=== PATIENT | female | born 1985 | race Caucasian/White ===

== ENCOUNTER 2016-12-16 15:59 | Outpatient (CLI) | payer OTHER ==
[~2016-12-16] VITALS: Ht 167.6 cm; Wt 83.7 kg
[2016-12-16 16:20] VITALS: BP 107/61; PULSE 55; Ht 167.6 cm; Wt 83.7 kg
[2016-12-16] MEDS ORDERED: PRENAT PO (16:21)
[2016-12-16] MEDS ORDERED: TERBUTALINE 1 MG/ML INJ SC ONE ×2 (17:00→20:30)
[2016-12-16] MEDS ORDERED: LACTATED RINGER'S 1,000 ML IV SCH (17:00)
--- NOTE | 2016-12-16 17:14 | RADRPT ---
PROCEDURE: Limited obstetric ultrasound CLINICAL INDICATION: Pain , PTL TECHNIQUE: Multiple transverse and longitudinal grayscale images of the pelvis were obtained peguero sabdominally and transvaginally.. COMPARISON: same day FINDINGS: The cervix is closed with a length of 4.8 cm. There is a single viable intrauterine gestation. Cardiac activity is present with 120 beats per min dio. There is a vertex presentation. The placenta is anterior. There is no evidence for an abruption or placenta previa. RPTAT: AA IMPRESSION: Cervix length measures 4.8 cm. .Wilman Coleman MD, Date Time Electronically viewed and signed by .Wilman Coleman MD, on 12/16/2016 17:13 .S/
[2016-12-16 17:52] LABS: ABNORMAL IP MESSAGE 1; BASOPHILS % 0.3 % (0.0-2.0); EOSINOPHILS % 0.4 % (0.0-7.0); HEMATOCRIT 37.9 % (37.0-47.0); HEMOGLOBIN 12.8 g/dl (12.0-16.0); LYMPHOCYTES # 1.5 10^3/ul (0.8-2.9); LYMPHOCYTES % 19.4 % (15.0-51.0); MEAN CORPUSCULAR HEMOGLOBIN 28.4 pg (29.0-33.0); MEAN CORPUSCULAR HGB CONC 33.8 g/dl (32.0-37.0); MEAN CORPUSCULAR VOLUME 84.2 fl (82.0-101.0); MEAN PLATELET VOLUME 13.4 fl (7.4-10.4); MONOCYTE # 0.6 10^3/ul (0.3-0.9); NEUTROPHIL # 5.6 10^3/ul (1.6-7.5); NEUTROPHILS % 71.4 % (39.0-77.0); PLATELET COUNT 128 10^3/UL (140-415); RED CELL DISTRIBUTION WIDTH 12.6 % (11.5-14.5); WHITE BLOOD COUNT 7.8 10^3/ul (4.8-10.8)
[2016-12-16 17:55] LABS: POSITIVE DIFF @See below
[2016-12-16 18:49] LABS: ADD UMIC NO; UR ASCORBIC ACID NEGATIVE (NEGATIVE); UR BILIRUBIN (Dip) NEGATIVE (NEGATIVE); UR BLOOD (Dip) NEGATIVE (NEGATIVE); UR CLARITY CLEAR (CLEAR); UR COLOR YELLOW (YELLOW); UR GLUCOSE (Dip) NEGATIVE (NEGATIVE); UR KETONES (Dip) NEGATIVE (NEGATIVE); UR LEUKOCYTE ESTERASE (Dip) NEGATIVE Leu/ul (NEGATIVE); UR NITRITE (Dip) NEGATIVE (NEGATIVE); UR SPECIFIC GRAVITY (Dip) 1.017 (1.003-1.030); UR TOTAL PROTEIN (Dip) NEGATIVE (NEGATIVE); UR UROBILINOGEN (Dip) NEGATIVE (NEGATIVE)
--- NOTE | 2016-12-16 19:53 | PN ---
Triage Information Date/Time December 16, 2016 Reason for visit: Uterine contractions Weeks of Gestation 33 week /Para 2 para 0 Diabetes: none Hypertention: none Additional information 31-year-old female sent in evaluation of uterine contractions observe in the clinic Objective Vital Signs Date Time Temp Pulse Resp B/P Pulse Ox O2 Delivery O2 Flow Rate FiO2 12/16/16 16:20 97.9 55 107/61 Heart Rate: 140's Heart Rate Comments Reactive Contractions: < 5 Minutes Apart Exam Cervix is long and closed Results/Medications Result Diagram: 12/16/16 1730 Results 24 hrs Laboratory Tests Test 12/16/16 17:30 12/16/16 18:15 White Blood Count 7.8 Red Blood Count 4.50 Hemoglobin 12.8 Hematocrit 37.9 Mean Corpuscular Volume 84.2 Mean Corpuscular Hemoglobin 28.4 L Mean Corpuscular Hemoglobin Concent 33.8 Red Cell Distribution Width 12.6 Platelet Count 128 L Mean Platelet Volume 13.4 H Neutrophils % 71.4 Lymphocytes % 19.4 Monocytes % 8.0 Eosinophils % 0.4 Basophils % 0.3 Nucleated Red Blood Cells % 0.0 Neutrophils # 5.6 Lymphocytes # 1.5 Monocytes # 0.6 Eosinophils # 0.0 Basophils # 0.0 Nucleated Red Blood Cells # 0.0 Urine Color YELLOW Urine Clarity CLEAR Urine pH 6.0 Urine Specific [place] 1.017 Urine Ketones NEGATIVE Urine Nitrite NEGATIVE Urine Bilirubin NEGATIVE Urine Urobilinogen NEGATIVE Urine Leukocyte Esterase NEGATIVE Urine Hemoglobin NEGATIVE Urine Glucose NEGATIVE Urine Total Protein NEGATIVE Medications Current Medications Lactated Ringer's (Lr) 1,000 ml @ 125 mls/hr Q8H IV Last administered on t 17:24; Admin Dose 125 MLS/HR; Start 12/16/16 at 17:00 Imaging Results The cervix is closed with a length of 4.8 cm. There is a single viable intrauterine gestation. Cardiac activity is present with 120 beats per minute. There is a vertex presentation. The placenta is anterior. There is no evidence for an abruption or placenta previa. Disposition: Discharge Assessment/Plan After receiving IV hydration and subcutaneous terbutaline uterine contractions subsided Patient became totally pain-free Is going to follow patient as outpatient Recommended patient to have bed on pelvic rest until delivery Also recommended patient in case her contractions return she should return to OB triage HINA WOMACK MD Dec 16, 2016 19:53
--- NOTE | 2016-12-16 19:55 | PD.PPDC ---
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
[2016-12-16] MEDS ORDERED: BETAMET NA PHOS/AC(6 MG/ML) 5ML INJ IM ONE (20:30)
--- NOTE | 2016-12-16 21:41 | TRIAGE ---
OB Triage Datetime Report Generated by CPN: 12/16/2016 21:41 Datetime: 12/16/2016 21:04 Pain Assessment Comments: PT. DENIES FEELING UC'S, PT. REQUESTING TO BE D/C'D HOME Datetime: 12/16/2016 20:42 Pain Assessment Comments: PT. STILL DENYING FEELING UC AND PAIN Datetime: 12/16/2016 20:30 Labor Evaluation Frequency: OCC Monitor Mode: External Pattern: Normal: <= 5 Contractions in 10 Minutes Heart Rate FHR Baseline Rate: 135 Monitor Mode: External US FHR Baseline Changes: No Baseline Change Variability: Moderate 6-25 bpm Accelerations: 15X15 Datetime: 12/16/2016 19:30 Labor Evaluation Frequency: 1.5-4 Monitor Mode: External Duration (sec)2399: 40-50 Pattern: Normal: <= 5 Contractions in 10 Minutes Heart Rate FHR Baseline Rate: 135 Monitor Mode: External US FHR Baseline Changes: No Baseline Change Variability: Moderate 6-25 bpm Accelerations: 15X15 Datetime: 12/16/2016 19:27 Pain Assessment Pain Scale: 0 Pain Goal: 0 Pain Assessment Comments: PT. STATES SHE HAS 'NO PAIN', PT. ALSO STATES THAT SHE WAS NOT FEELING A [place] PAIN WHEN SHE FIRST CAME IN Datetime: 12/16/2016 19:20 Monitor Mode: External US Datetime: 12/16/2016 18:19 Vaginal Exam Dilatation (cms): 0.0 Effacement (%): 0 Station: -3 Exam By: S ALLYSON Vaginal Bleeding: None Cervix, Consistency: Soft Cervix, Position: Posterior Presentation 'A': Cephalic Datetime: 12/16/2016 17:32 Labor Evaluation Frequency: 2-3 Monitor Mode: External Duration (sec)2399: 50-60 Quality: Mild Resting Tone [place]: Relaxed Heart Rate FHR Baseline Rate: 125 Monitor Mode: External US Variability: Moderate 6-25 bpm Decelerations: None Category: Category I Pain Assessment Pain Scale: 0 Pain Presence: None/Denies Pain Type: N/A Pain Goal: 3 Pain Relief Measures: Comfort Measures Datetime: 12/16/2016 16:33 Stage of : OB Triage Datetime: 12/16/2016 16:17 Stage of : OB Triage Assessment Type: Triage Maternal Assessment Level of Consciousness: Fully Conscious DTR's/Clonus: DTRs 2+; No Clonus Headache: Denies Blurred Vision: No Respiratory Effort: Unlabored; Regular Rhythm; Equal Expansion Breath Sounds, Left: Clear and Equal Breath Sounds, Right: Clear and Equal Nausea/Vomiting: Denies RUQ Epigastric Pain: Denies Facial Edema: None Temperature Route: Axillary Fall Risk Assessment History of Falling: (0) No Secondary Diagnosis: (0) No Ambulatory Aid: (0) Bedrest/Nurse Assist IV Therapy: (0) No Gait: (0) Normal/Bedrest/Immobile Mental Status: (0) Oriented to Own Ability Fall Score: 0 Fall Risk Score Definition: No Risk: No action required Labor Evaluation Frequency: 2-3 Monitor Mode: External Duration (sec)2399: 40-50 Quality: Mild Pattern: Normal: <= 5 Contractions in 10 Minutes Resting Tone [place]: Relaxed Heart Rate FHR Baseline Rate: 125 Monitor Mode: External US Variability: Moderate 6-25 bpm Accelerations: 10X10 Decelerations: None Category: Category I Pain Assessment Pain Scale: 0 Pain Presence: None/Denies Pain Type: N/A Pain Location: Abdomen Pain Goal: 3 Pain Relief Measures: Comfort Measures Datetime: 12/16/2016 16:16 EGA: 33.6 Datetime: 12/16/2016 16:15 Time of Arrival: 12/16/2016 15:45 Arrived By: Ambulatory Arrived From: [facility] Chief Complaint: SENT FROM OFFICE TO R/O PTL, DENIES UC'S, BLEEDING OR LEAKING Movement: Present Contractions: Denies/Absent Rupture of Membranes: Denies Vaginal Bleeding: None Vaginal Discharge: Denies Recent Sexual Intercouse: Denies Abdominal Trauma: Not Applicable Patient Complaints: None Time Provider Notified: 12/16/2016 16:33 Provider Notified: DONNA Initial Plan: MONITOR, IV HYDRATION, SUB Q TERB, CL, U/A, CBC, VE
[2016-12-17] MEDS ORDERED: PRO20 PO (20:08)
== END 2016-12-16 21:35 | disposition home or self-care (01) ==
LOC: OBT 15:59 → L-D 16:01 → OBT 21:35
PROVIDERS: ATTEND Obstetrics & Gynecology
DX: O62.9 Abnormality of forces of labor, unspecified (principal); Z3A.33 33 weeks gestation of pregnancy
CPT/HCPCS: 36415; 76817; 81003; 85025; 96360; 96361; 96372; J0702; J3105; J7120; Z7500; G0463

== ENCOUNTER 2016-12-17 19:51 | Outpatient (CLI) | payer OTHER ==
[~2016-12-17 19:51] MED LIST: PRENAT PO
[2016-12-17] MEDS ORDERED: BETAMET NA PHOS/AC(6 MG/ML) 5ML INJ IM ONE (20:00)
[2016-12-17] MEDS ORDERED: PRO20 PO (20:08)
--- NOTE | 2016-12-18 01:18 | PN ---
Triage Information Date/Time December 17, 2016 31-year-old with IUP at 34 weeks and contractions presented and was sent by primary OB to triage to receive the second dose of steroid. Patient currently taking nifedipine for contraction. Has been seen 24 hours ago in triage and received 1 dose of betamethasone. She was sent and discharged home with nifedipine. She currently denies any leaking of fluid, vaginal bleeding decreased movement or any other complaint. NST: Category 1 Reason for visit: Receiving steroid shot Weeks of Gestation 34 weeks /Para Diabetes: none Hypertention: none Additional information contraction Objective Heart Rate: 120's Contractions: >10 Minutes Apart Exam General appearance: Alert and oriented 4. Patient does not appear to be in any acute distress. NST: Category 1 Contractions seen in the monitor variable interval . Irregular. Patient does not feel them Disposition: Discharge Assessment/Plan IUP is a 34 weeks contraction Status post 1 dose of steroid 24 hours ago, receive second dose today No evidence of labor testing reassuring Patient will be discharged home with a follow-up with primary OB within 24-48 hours with strict labor precaution for the francis count. Patient verbalized understanding RIO ELLIOTT MD Dec 18, 2016 01:18
== END 2016-12-17 22:00 | disposition home or self-care (01) ==
LOC: OBT 19:51 → L-D 19:52 → OBT 22:00
PROVIDERS: ATTEND Obstetrics & Gynecology
DX: O62.9 Abnormality of forces of labor, unspecified (principal); Z3A.34 34 weeks gestation of pregnancy
CPT/HCPCS: 96372; Z7500; G0463

== ENCOUNTER 2016-12-25 16:50 | Outpatient (CLI) | payer OTHER ==
[~2016-12-25] VITALS: Ht 165.1 cm; Wt 83.8 kg
[~2016-12-25 16:50] MED LIST changes: +PRO20 PO
[2016-12-25 17:42] VITALS: Ht 165.1 cm; Wt 83.8 kg
--- NOTE | 2016-12-25 17:44 | RADRPT ---
PROCEDURE: US OB biophysical profile. CLINICAL INDICATION: decreased movements TECHNIQUE: Multiple sonographic images of the pelvis were obtained. The images were reviewed on a PACS workstation. COMPARISON: 12/16/16 FINDINGS: There is a single viable intrauterine gestation. Cardiac activity is present with 135 beats per min dio. There is a vertex presentation. The placenta is anterior. There is no evidence of placental abruption. There is a normal amount of amniotic fluid with an TOAN = 19.1 cm. Biophysical profile: movement 2/2 tone 2/2. breathing 2/2 TOAN 2/2 Total 12/16 RPTAT: AA . IMPRESSION: Normal biophysical profile. . .Wilman Coleman MD, MD Date Time Electronically viewed and signed by .Wilman Coleman MD, MD on 12/25/2016 17:44 .S/
--- NOTE | 2016-12-25 18:40 | PN ---
Triage Information Date/Time 12/25/2016 Reason for visit: DFM Weeks of Gestation 34.2 /Para Diabetes: none Hypertention: none Additional information here for decreased movement Objective Heart Rate: 120's Heart Rate Comments reactive Contractions: None Exam N/A Results/Medications Imaging Results Biophysical profile: movement 2/2 tone 2/2. breathing 2/2 TOAN 2/2 Total 12/16 RPTAT: AA . IMPRESSION: Normal biophysical profile. Disposition: Discharge Assessment/Plan will follow as out patient HINA WOMACK MD Dec 25, 2016 18:40
== END 2016-12-25 19:24 | disposition home or self-care (01) ==
LOC: OBT 16:50 → L-D 16:51 → OBT 19:24
PROVIDERS: ATTEND Obstetrics & Gynecology
DX: O36.8130 Decreased fetal movements, third trimester, not applicable or unspecified (principal); Z3A.34 34 weeks gestation of pregnancy
CPT/HCPCS: 76818; Z7500; G0463

== ENCOUNTER 2017-01-20 12:30 | Outpatient (CLI) | payer OTHER ==
[~2017-01-20] VITALS: Ht 165.1 cm; Wt 84.7 kg
[2017-01-20 12:59] VITALS: Ht 165.1 cm; Wt 84.7 kg
[2017-01-20 13:00] VITALS: BP 108/67; PULSE 56; RESP 20
[2017-01-20] MEDS ORDERED: FER325 PO (14:41)
[2017-01-20] MEDS ORDERED: CALC600T5 PO (14:41)
--- NOTE | 2017-01-20 16:10 | PN ---
Triage Information Date/Time January 20, 2017 Reason for visit: 17 by perinatologist for follow-up of nonreactive heart tracing in Weeks of Gestation 38 weeks /Para 2 para 1 Diabetes: gestational Diabetes management: diet controlled Hypertention: none Additional information Sent in by perinatologist for extended monitoring because of a nonreactive heart tones in antepartum unit heart tones appears to be reactive Contraction stress test appears to be negative Had a small variable deceleration earlier Objective Vital Signs Date Time Temp Pulse Resp B/P Pulse Ox O2 Delivery O2 Flow Rate FiO2 01/20/17 13:00 98.1 56 20 108/67 96 Heart Rate: 120's Heart Rate Comments Reactive Contractions: 6-10 Minutes Apart Exam Not applicable Results/Medications Imaging Results Had biophysical profile of 8 out of 8 Disposition: Discharge Assessment/Plan We will discharge home Kick count instructions given Recommended to refer her back to hospital should have decreased movement Continue antepartum monitoring for diabetes Revisiting clinic in 2 days Repeat antepartum testing in 3 days HINA WOMACK MD Jan 20, 2017 16:10
--- NOTE | 2017-01-20 16:38 | TRIAGE ---
OB Triage Datetime Report Generated by CPN: 01/20/2017 16:38 Datetime: 01/20/2017 15:00 Stage of : OB Triage Maternal Assessment Level of Consciousness: Fully Conscious Nausea/Vomiting: Denies RUQ Epigastric Pain: Denies Labor Evaluation Frequency: 10 Monitor Mode: External Duration (sec)2399: 40-60 Quality: Mild Interventions: Side to Side Heart Rate FHR Baseline Rate: 120 Monitor Mode: External US Variability: Minimal - Undetectable to <=5 bpm Accelerations: 15X15 Decelerations: Variable (Annotations: x1 [id number] x 90 sec) Category: Category II Pain Assessment Pain Scale: 1 Pain Presence: Intermittent Pain Type: Contraction Pain Location: Abdomen Pain Goal: 3 Datetime: 01/20/2017 14:00 Stage of : OB Triage Maternal Assessment Level of Consciousness: Fully Conscious Headache: Localized (Annotations: top of head 2/10) Nausea/Vomiting: Denies RUQ Epigastric Pain: Denies Labor Evaluation Frequency: 5-7 Monitor Mode: External Duration (sec)2399: 40-60 Quality: Mild Heart Rate FHR Baseline Rate: 120 Monitor Mode: External US Variability: Minimal - Undetectable to <=5 bpm Accelerations: 15X15 Decelerations: None Category: Category I Pain Assessment Pain Scale: 1 Datetime: 01/20/2017 13:08 Stage of : OB Triage Maternal Assessment Level of Consciousness: Fully Conscious DTR's/Clonus: DTRs 2+; No Clonus Headache: Denies Blurred Vision: No Respiratory Effort: Unlabored; Regular Rhythm; Equal Expansion Breath Sounds, Left: Clear and Equal Breath Sounds, Right: Clear and Equal Nausea/Vomiting: Denies RUQ Epigastric Pain: Denies Lower Extremities Edema: None Upper Extremities Edema: None Facial Edema: None Fall Risk Assessment History of Falling: (0) No Secondary Diagnosis: (0) No Ambulatory Aid: (0) Bedrest/Nurse Assist IV Therapy: (0) No Gait: (0) Normal/Bedrest/Immobile Mental Status: (0) Oriented to Own Ability Fall Score: 0 Fall Risk Score Definition: No Risk: No action required Labor Evaluation Frequency: occ Monitor Mode: External Quality: Mild Heart Rate FHR Baseline Rate: 120 Monitor Mode: External US Variability: Moderate 6-25 bpm Accelerations: 15X15 Decelerations: None Category: Category I Datetime: 01/14/2017 13:14 Time of Arrival: 01/20/2017 12:19 EGA: 38.0 Arrived By: Ambulatory Arrived From: Other Unit in Hospital Chief Complaint: headaches on/off; decreased variability Movement: Present Contractions: Irregular Rupture of Membranes: Denies Vaginal Bleeding: None Vaginal Discharge: Denies Recent Sexual Intercouse: Denies Abdominal Trauma: Not Applicable Patient Complaints: Contractions Time Provider Notified: 01/20/2017 13:35 Provider Notified: Bj Initial Plan: nst valeria was done 19.8 cm in perinatology Datetime: 12/25/2016 18:47 Monitor Mode: External Pattern: Normal: <= 5 Contractions in 10 Minutes Resting Tone [place]: Relaxed Heart Rate FHR Baseline Rate: 140 Monitor Mode: External US FHR Baseline Changes: No Baseline Change Variability: Moderate 6-25 bpm Accelerations: 15X15 Decelerations: None Category: Category I Datetime: 12/25/2016 18:34 Stage of : OB Triage Datetime: 12/25/2016 17:45 EGA: 35.1 Datetime: 12/25/2016 17:00 Fall Score: 0 Fall Risk Score Definition: No Risk: No action required Datetime: 12/17/2016 19:55 Fall Score: 0 Fall Risk Score Definition: No Risk: No action required Datetime: 12/16/2016 16:17 Fall Score: 0 Fall Risk Score Definition: No Risk: No action required Datetime: 12/16/2016 16:16 EGA: 34.0
== END 2017-01-20 16:33 | disposition home or self-care (01) ==
LOC: L-D 12:30 → OBT 12:30
PROVIDERS: ATTEND Obstetrics & Gynecology
DX: O24.419 Gestational diabetes mellitus in pregnancy, unspecified control (principal); Z3A.38 38 weeks gestation of pregnancy
CPT/HCPCS: G0463

== ENCOUNTER 2017-01-31 01:29 | Outpatient (CLI) | payer OTHER ==
[~2017-01-31] VITALS: Ht 165.1 cm; Wt 84.5 kg
[~2017-01-31 01:29] MED LIST changes: +CALC600T5 PO; +FER325 PO; -PRO20 PO
[2017-01-31 01:39] VITALS: BP 112/71; PULSE 57; RESP 18
--- NOTE | 2017-01-31 02:18 | RADRPT ---
PROCEDURE: US OB biophysical profile. CLINICAL INDICATION: decreased movements TECHNIQUE: Multiple sonographic images of the pelvis were obtained. The images were reviewed on a PACS workstation. COMPARISON: No pertinent prior examinations were submitted for comparison. FINDINGS: There is a single viable intrauterine gestation. Cardiac activity is present with 146 beats per min [place]. There is a vertex presentation. The placenta is anterior. There is a increased amount of amniotic fluid with an TOAN = 26 cm. Biophysical profile: movement 2/2 tone 2/2. breathing 2/2 TOAN 2/2 Total 12/16 IMPRESSION: Normal biophysical profile. Polyhydramnios. RPTAT: HIKT . .Harjinder Toledo MD, MD Date Time Electronically viewed and signed by .Harjinder Toledo MD, on 01/31/2017 02:18 .T/
[2017-01-31] MEDS ORDERED: ACETAMINOPHEN 500 MG TAB PO ONE (04:08)
[2017-01-31 04:58] LABS: ADD UMIC YES; UR ASCORBIC ACID 20 mg/dL (NEGATIVE); UR BILIRUBIN (Dip) NEGATIVE (NEGATIVE); UR BLOOD (Dip) NEGATIVE (NEGATIVE); UR CLARITY SLIGHTLY CLOUDY (CLEAR); UR COLOR YELLOW (YELLOW); UR GLUCOSE (Dip) NEGATIVE (NEGATIVE); UR KETONES (Dip) NEGATIVE (NEGATIVE); UR LEUKOCYTE ESTERASE (Dip) NEGATIVE Leu/ul (NEGATIVE); UR MUCUS FEW /HPF (NONE SEEN); UR NITRITE (Dip) NEGATIVE (NEGATIVE); UR RBC 1 /HPF (0-5); UR SPECIFIC GRAVITY (Dip) 1.027 (1.003-1.030); UR SQUAMOUS EPITHELIAL CELL FEW /HPF (FEW); UR TOTAL PROTEIN (Dip) 1+ mg/dl (NEGATIVE); UR UROBILINOGEN (Dip) NEGATIVE (NEGATIVE)
--- NOTE | 2017-01-31 07:02 | PN ---
Triage Information Date/Time Jan 31, 2017 Reason for visit: Abd/pelvic pain Weeks of Gestation 39w 4d /Para 2/0 Diabetes: none Hypertention: none Additional information Pt came in as she fell on the side of her belly when she was trying to reach something in a high cupboard. No leaking, contractions, bleeding, LUU, visual changes or epigastric pain. Objective Vital Signs Date Time Temp Pulse Resp B/P Pulse Ox O2 Delivery O2 Flow Rate FiO2 01/31/17 01:39 98.0 57 18 112/71 Room Air Heart Rate: 120's Heart Rate Comments With accels to 150's. No decels. Contractions: 6-10 Minutes Apart Exam Closed/thick/high. Results/Medications Results 24 hrs Laboratory Tests Test 01/31/17 04:00 Urine Color YELLOW Urine Clarity SLIGHTLY CLOUDY A Urine pH 6.0 Urine Specific [place] 1.027 Urine Ketones NEGATIVE Urine Nitrite NEGATIVE Urine Bilirubin NEGATIVE Urine Urobilinogen NEGATIVE Urine Leukocyte Esterase NEGATIVE Urine Microscopic RBC 1 Urine Microscopic WBC 2 Urine Squamous Epithelial Cells FEW Urine Mucus FEW A Urine Hemoglobin NEGATIVE Urine Glucose NEGATIVE Urine Total Protein 1+ H Imaging Results BPP 8/8. VTX. TOAN 26. Disposition: Discharge Assessment/Plan A: IUP at 39w 4d. S/P fall on side of belly. Not in labor. P: D/C home. Keep appt with Dr Lorenzo on 02/05. kick counts and labor precautions reviewed with pt. DOLORES RENDON MD Jan 31, 2017 07:02
== END 2017-01-31 07:40 | disposition home or self-care (01) ==
LOC: L-D 01:29 → OBT 01:29
PROVIDERS: ATTEND Obstetrics & Gynecology
DX: O9A.213 Injury, poisoning and certain other consequences of external causes complicating pregnancy, third trimester (principal); Z3A.39 39 weeks gestation of pregnancy; R10.2 Pelvic and perineal pain; W19.XXXA Unspecified fall, initial encounter
CPT/HCPCS: 76818; 81001; Z7500; Z7610; G0463

== ENCOUNTER 2017-02-03 11:30 | Inpatient (IN) | payer OTHER ==
[~2017-02-03] VITALS: Ht 165.1 cm; Wt 83.6 kg
[2017-02-03 12:44] VITALS: Ht 165.1 cm; Wt 83.6 kg
[2017-02-03] MEDS: LACTATED RINGER'S 1,000 ML IV SCH ×2 (12:50→14:21)
[2017-02-03 12:57] LABS: ABNORMAL IP MESSAGE 1; BASOPHILS % 0.4 % (0.0-2.0); EOSINOPHILS % 0.4 % (0.0-7.0); HEMATOCRIT 37.6 % (37.0-47.0); HEMOGLOBIN 12.9 g/dl (12.0-16.0); LYMPHOCYTES # 2.2 10^3/ul (0.8-2.9); LYMPHOCYTES % 28.6 % (15.0-51.0); MEAN CORPUSCULAR HEMOGLOBIN 29.3 pg (29.0-33.0); MEAN CORPUSCULAR HGB CONC 34.3 g/dl (32.0-37.0); MEAN CORPUSCULAR VOLUME 85.3 fl (82.0-101.0); MEAN PLATELET VOLUME 13.6 fl (7.4-10.4); MONOCYTE # 0.6 10^3/ul (0.3-0.9); MONOCYTES % 7.9 % (0.0-11.0); NEUTROPHIL # 4.9 10^3/ul (1.6-7.5); NEUTROPHILS % 62.1 % (39.0-77.0); PLATELET COUNT 103 10^3/UL (140-415); RED BLOOD COUNT 4.41 10^6/ul (4.20-5.40); RED CELL DISTRIBUTION WIDTH 13.7 % (11.5-14.5); WHITE BLOOD COUNT 7.8 10^3/ul (4.8-10.8)
[2017-02-03] MEDS ORDERED: OXYTOCIN 30 UNITS/LR 500 ML IV PRN ×2 (13:00→22:00)
[2017-02-03] MEDS ORDERED: CARBOPROST 250 MCG INJ IM PRN ×2 (13:00→22:00)
[2017-02-03] MEDS ORDERED: OXYTOCIN 30 UNITS/LR 500 ML IV SCH (13:00)
[2017-02-03] MEDS ORDERED: METHYLERGONOVINE 0.2 MG INJ IM PRN ×2 (13:00→22:00)
[2017-02-03] MEDS ORDERED: MISOPROSTOL 200 MCG TAB PR PRN ×2 (13:00→22:00)
[2017-02-03] MEDS ORDERED: CEFAZOLIN 2 GM/50 ML (PMX) 50 ML IV SCH (13:00)
[2017-02-03 13:04] LABS: POSITIVE DIFF @See below
[2017-02-03 13:12] LABS: INR 0.86; PROTIME 11.7 Sec (12.2-14.2); PT RATIO 0.9
[2017-02-03 13:13] LABS: PARTIAL THROMBOPLASTIN TIME 29.7 Sec (25.0-35.0)
[2017-02-03] MEDS ORDERED: KETOROLAC 30 MG INJ ONE (13:30)
[2017-02-03] MEDS ORDERED: morphine SULFATE/PF (10 MG/10 ML) INJ ONE (13:30)
[2017-02-03] MEDS ORDERED: METOCLOPRAMIDE 10 MG INJ ONE (13:30)
[2017-02-03] MEDS ORDERED: CITRIC ACID/NA CITRATE 30 ML CUP ONE (13:46)
[2017-02-03] MEDS ORDERED: CITRIC ACID/NA CITRATE 30 ML CUP PO ONE (14:00)
--- NOTE | 2017-02-03 14:24 | RADRPT ---
PROCEDURE: US OB. CLINICAL INDICATION: Size and dates TECHNIQUE: Multiple sonographic images of the pelvis and gravid uterus were obtained. The images were reviewed on a PACS workstation. COMPARISON: 01/31/17 FINDINGS: There is a single viable intrauterine gestation. Cardiac activity is present with 121 beats per min dio. There is a vertex presentation. The placenta is anterior. There is no evidence for an abruption or placenta previa. Measurements were made in order to determine age. The results are as follows: BPD =9.7 cm HC =34.9 cm AC =33.6 cm FL =6.7 cm Estimated gestational age of approximately 38 weeks and 1 day based on ultrasound measurements. Clinical age: 40 weeks and 0 days. The estimated date of delivery is 02/16/17, based on ultrasound measurements. The EFW = 3185 g, 17%, based on LMP age. RPTAT: AA IMPRESSION: Single viable intrauterine gestation of approximately 38 weeks and 1 day based on ultrasound measur ements. .Wilman Coleman MD, Date Time Electronically viewed and signed by .Wilman Coleman MD, on 02/03/2017 14:23 .S/
[2017-02-03] MEDS ORDERED: FENTAnyl 50 MCG/ML VIAL ONE (15:14)
[2017-02-03 16:10] LABS: CBV Base Excess -6.6 mmol/L; Cord Blood Venous pO2 11.4 mmHG (15.0-45.0); MODE ROOM AIR; Sample Type CBV
[2017-02-03 16:12] LABS: Arterial Cord Blood pCO2 79.5 mmHG (25-50); CBA Base Excess -6.6 mmol/L; CBA Total Hemglobin 18.6 g/dl; Fraction OxyHgb Cord Arterial 5.6 %; MODE ROOM AIR; MetHgb Cord Arterial 1.6 %; Sample Type CBA
[2017-02-03] MEDS ORDERED: ONDANSETRON 4 MG INJ IV PRN ×3 (17:00→22:00)
[2017-02-03] MEDS ORDERED: NALOXONE (0.4 MG/ML) INJ IV PRN (17:00)
[2017-02-03] MEDS ORDERED: HYDROmorphONE 1 MG/ML SYG IV PRN ×3 (17:00)
[2017-02-03] MEDS ORDERED: KETOROLAC 30 MG INJ IV PRN (17:00)
[2017-02-03] MEDS ORDERED: DIPHENHYDRAMINE 50 MG INJ IV PRN ×3 (17:00→22:00)
[2017-02-03] MEDS ORDERED: HYDROmorphONE (0.2 MG/ML) 10ML SYG IV PRN ×3 (17:00)
[2017-02-03] MEDS ORDERED: MEPERIDINE 25 MG INJ IV PRN (17:00)
--- NOTE | 2017-02-03 19:10 | HP ---
Date/Time of Note Date/Time of Note DATE: 02/03/17 TIME: 18:53 OB - History Hx of Present Free Text/Dictation 31 y.o A1(sab) at 40weeks was at antepratum test for A1DM tracing was CAT III ,reported to me by DR jeffers recommanded to deliver ,cervix was closed when she was transferred to L&D tracing seems to be better after IV hydration and O2 tx but while we were waiting , tracing got worse and baseline dropped by 20's primary section was chosen initially prior to transferred from antepartum, but still observing the tracing since tracing got improved,but BBV decreased and lower baseline prepare section imediatly. informed consent was obtained after patient understood fully in detail. Chief Complaint: cat III Estimated Due Date: Feb 03, 2017 : 2 Para: 0 Spontaneous : 1 Therapeutic : 0 Care: Good Care Ultrasounds: Normal mid trimester US Obstetrical Complications: Gestational Diabetes, Other (thrombocytopenia) Past Family/Social History * Past Medical, Surgical, Family and Obstetric Histories reviewed from chart. Blood Type: O+ Rubella: immune RPR/VDRL: Negative GBS Status: Negative HBsAG: Negative OB Admission Exam Physical Exam HEENT: WNL Cervical Dilatation: None Membranes: Intact (110 ) Accelerations: Accelerations Present Decelerations: Late Decelarations Varibility: Minimum Contractions on Admission: 6-10 Minutes Apart Intensity: Moderate Last 72 hours Lab Results CBC & BMP 02/03/17 12:30 OB Assessment/Plan Reason for admission: other (cat III tracing) Other Assessment: IUP 40w Plan: Section BROOKE FRIEDMAN MD Feb 03, 2017 19:07
[2017-02-03 19:15] VITALS: BP 116/74; PULSE 46; RESP 19
[2017-02-03 19:30] VITALS: BP 120/79; PULSE 47; RESP 19
[2017-02-03 19:45] VITALS: BP 123/93; PULSE 49; RESP 19
[2017-02-03 20:00] VITALS: BP 122/75; PULSE 46; RESP 18
[2017-02-03 20:15] VITALS: BP 126/76; PULSE 46; RESP 19
--- NOTE | 2017-02-03 20:25 | TRIAGE ---
OB Triage Datetime Report Generated by CPN: 02/03/2017 20:25 Datetime: 02/03/2017 19:00 Stage of : Recovery Pain Assessment Pain Scale: 0 Pain Presence: None/Denies Pain Type: N/A Pain Goal: 3 Datetime: 02/03/2017 18:45 Stage of : Recovery Pain Assessment Pain Scale: 0 Pain Presence: None/Denies Pain Type: N/A Pain Goal: 3 Datetime: 02/03/2017 18:30 Stage of : Recovery Pain Assessment Pain Scale: 0 Pain Presence: None/Denies Pain Type: N/A Pain Goal: 3 Datetime: 02/03/2017 18:15 Stage of : Recovery Pain Assessment Pain Scale: 0 Pain Presence: None/Denies Pain Type: N/A Pain Goal: 3 Datetime: 02/03/2017 18:03 Stage of : Recovery Datetime: 02/03/2017 18:00 Stage of : Recovery Pain Assessment Pain Scale: 0 Pain Presence: None/Denies Pain Type: N/A Pain Goal: 3 Datetime: 02/03/2017 17:43 Stage of : Recovery Pain Assessment Pain Scale: 0 Pain Presence: None/Denies Pain Type: N/A Pain Goal: 3 Datetime: 02/03/2017 17:35 Stage of : Recovery Pain Assessment Pain Scale: 0 Pain Presence: None/Denies Pain Type: N/A Pain Goal: 3 Pain Assessment Comments: DENIES FEELING PAIN Datetime: 02/03/2017 17:20 Stage of : Recovery Pain Assessment Pain Scale: 0 Pain Presence: None/Denies Pain Type: N/A Pain Goal: 3 Datetime: 02/03/2017 17:05 Stage of : Recovery Pain Assessment Pain Scale: 0 Pain Presence: None/Denies Pain Type: N/A Pain Goal: 3 Datetime: 02/03/2017 16:50 Stage of : Recovery Pain Assessment Pain Scale: 0 Pain Presence: None/Denies Pain Type: N/A Pain Goal: 3 Pain Assessment Comments: PT DENIES PAIN AT THIS TIME Datetime: 02/03/2017 14:30 Labor Evaluation Frequency: 2-4 Monitor Mode: External Duration (sec)2399: 60-100 Quality: Mild Pattern: Normal: <= 5 Contractions in 10 Minutes Resting Tone [place]: Relaxed Heart Rate FHR Baseline Rate: 110 Monitor Mode: External US FHR Baseline Changes: Bradycardia Variability: Minimal - Undetectable to <=5 bpm Accelerations: 10X10 Decelerations: Early Category: Category III Pain Presence: None/Denies Datetime: 02/03/2017 14:00 Labor Evaluation Frequency: 2-3 Monitor Mode: External Duration (sec)2399: 60-120 Quality: Moderate Pattern: Normal: <= 5 Contractions in 10 Minutes Resting Tone [place]: Relaxed Heart Rate FHR Baseline Rate: 115 Monitor Mode: External US FHR Baseline Changes: No Baseline Change Variability: Minimal - Undetectable to <=5 bpm Accelerations: 15X15 Decelerations: None Category: Category II Pain Presence: None/Denies Datetime: 02/03/2017 13:30 Heart Rate FHR Baseline Rate: 110 Monitor Mode: External US FHR Baseline Changes: No Baseline Change Variability: Minimal - Undetectable to <=5 bpm Accelerations: 15X15 Decelerations: None Category: Category II Comments: Periods of bradycardia, MD Luciana aware Datetime: 02/03/2017 13:15 Interventions: Side to Side; Oxygen Applied; IV Bolus; Provider Notified Heart Rate FHR Baseline Rate: 110 Monitor Mode: External US FHR Baseline Changes: Bradycardia Variability: Minimal - Undetectable to <=5 bpm Accelerations: 15X15 Decelerations: Early Category: Category II Comments: Periods of bradycardia; MD Chowdhury made aware. 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 also made aware of periods o f FHR bradycardia Datetime: 02/03/2017 13:00 Labor Evaluation Frequency: 2-4 Monitor Mode: External Duration (sec)2399: 60-120 Quality: Moderate Pattern: Normal: <= 5 Contractions in 10 Minutes Resting Tone [place]: Relaxed Heart Rate FHR Baseline Rate: 115 Monitor Mode: External US FHR Baseline Changes: No Baseline Change Variability: Minimal - Undetectable to <=5 bpm Accelerations: 15X15 Decelerations: Early Category: Category II Pain Presence: None/Denies Datetime: 02/03/2017 12:25 Assessment Type: Admission Assessment Vaginal Bleeding: None Maternal Assessment Level of Consciousness: Fully Conscious DTR's/Clonus: DTRs 2+; No Clonus Headache: Denies Blurred Vision: No Respiratory Effort: Unlabored; Regular Rhythm; Equal Expansion Breath Sounds, Left: Clear and Equal Breath Sounds, Right: Clear and Equal Nausea/Vomiting: Denies RUQ Epigastric Pain: Denies Lower Extremities Edema: Bilateral Lower Extremities Degree: 1+ Upper Extremities Edema: None Degree: None Facial Edema: None Fall Risk Assessment History of Falling: (0) No Secondary Diagnosis: (0) No Ambulatory Aid: (0) Bedrest/Nurse Assist IV Therapy: (20) Yes Gait: (0) Normal/Bedrest/Immobile Mental Status: (0) Oriented to Own Ability Fall Score: 20 Fall Risk Score Definition: No Risk: No action required Pain Assessment Pain Scale: 0 Pain Presence: None/Denies Pain Type: N/A Datetime: 02/03/2017 12:22 Stage of : Labor Datetime: 02/03/2017 12:00 Time of Arrival: 02/03/2017 12:00 EGA: 40.0 Arrived By: Ambulatory Arrived From: Other Unit in Hospital Datetime: 01/31/2017 06:43 Stage of : OB Triage Datetime: 01/31/2017 06:30 Stage of : OB Triage Monitor Mode: External Quality: Mild Pattern: Normal: <= 5 Contractions in 10 Minutes Resting Tone [place]: Relaxed Heart Rate FHR Baseline Rate: 125 Monitor Mode: External US FHR Baseline Changes: Return to Previous Baseline Variability: Moderate 6-25 bpm Accelerations: 15X15 Decelerations: None Category: Category I Datetime: 01/31/2017 05:30 Stage of : OB Triage Monitor Mode: External Quality: Mild Pattern: Normal: <= 5 Contractions in 10 Minutes Resting Tone [place]: Relaxed Heart Rate FHR Baseline Rate: 110 Monitor Mode: External US Variability: Moderate 6-25 bpm Accelerations: 15X15 Decelerations: None Category: Category I Datetime: 01/31/2017 04:28 Stage of : OB Triage Heart Rate FHR Baseline Rate: 120 Monitor Mode: External US FHR Baseline Changes: No Baseline Change Datetime: 01/31/2017 04:16 Heart Rate FHR Baseline Rate: 120 Monitor Mode: External US Variability: Moderate 6-25 bpm Accelerations: 15X15 Datetime: 01/31/2017 03:45 Stage of : OB Triage Monitor Mode: External Quality: Mild Pattern: Normal: <= 5 Contractions in 10 Minutes Resting Tone [place]: Relaxed Heart Rate FHR Baseline Rate: 120 Monitor Mode: External US Variability: Moderate 6-25 bpm Accelerations: 15X15 Decelerations: None Category: Category I Datetime: 01/31/2017 02:46 Stage of : OB Triage Labor Evaluation Frequency: 3-10 Monitor Mode: External Duration (sec)2399: 40-80 Quality: Mild Pattern: Normal: <= 5 Contractions in 10 Minutes Resting Tone [place]: Relaxed Heart Rate FHR Baseline Rate: 120 Monitor Mode: External US FHR Baseline Changes: No Baseline Change Variability: Moderate 6-25 bpm Accelerations: 15X15 Decelerations: Variable Category: Category II Vaginal Exam Dilatation (cms): 0.0 Effacement (%): 0 Station: -4 Exam By: Rod Rogers Membrane Status: Intact Vaginal Bleeding: None Cervix, Consistency: Soft Cervix, Position: Posterior Presentation 'A': Cephalic Datetime: 01/31/2017 02:25 Time of Arrival: 01/31/2017 00:58 EGA: 39.4 Arrived By: Wheelchair Arrived From: Home Chief Complaint: states climbed up and chair and fell hitting abdomen and bruising arms and l egs Movement: Present Contractions: Denies/Absent Rupture of Membranes: Denies Vaginal Bleeding: None Vaginal Discharge: Denies Recent Sexual Intercouse: Denies Abdominal Trauma: Fall Time Provider Notified: 01/31/2017 01:45 Provider Notified: Dr Gamez Initial Plan: EFM,SVE,BPP Datetime: 01/31/2017 01:45 Stage of : OB Triage Labor Evaluation Frequency: 7-10 Monitor Mode: External Quality: Mild Pattern: Normal: <= 5 Contractions in 10 Minutes Resting Tone [place]: Relaxed Heart Rate FHR Baseline Rate: 130 Monitor Mode: External US FHR Baseline Changes: No Baseline Change Variability: Moderate 6-25 bpm Accelerations: 15X15 Decelerations: None Category: Category I Datetime: 01/31/2017 01:17 Stage of : OB Triage Maternal Assessment Level of Consciousness: Fully Conscious Headache: Occipital Blurred Vision: No Nausea/Vomiting: Denies RUQ Epigastric Pain: Denies Facial Edema: None Monitor Mode: External Resting Tone [place]: Relaxed Heart Rate FHR Baseline Rate: 130 Monitor Mode: External US Pain Assessment Pain Scale: 2 Pain Presence: Constant Pain Type: Ache Pain Location: Abdomen; Right Leg; Left Leg; Right Arm; Left Arm Datetime: 01/20/2017 13:08 Fall Score: 0 Fall Risk Score Definition: No Risk: No action required Datetime: 01/14/2017 13:14 EGA: 38.0 Datetime: 12/25/2016 17:45 EGA: 35.1 Datetime: 12/25/2016 17:00 Fall Score: 0 Fall Risk Score Definition: No Risk: No action required Datetime: 12/17/2016 19:55 Fall Score: 0 Fall Risk Score Definition: No Risk: No action required Datetime: 12/16/2016 16:17 Fall Score: 0 Fall Risk Score Definition: No Risk: No action required Datetime: 12/16/2016 16:16 EGA: 34.0 Membranes Ruptured Date/Time: 02/03/2017 15:22 Membranes Rupture Method: Artificial Amniotic Fluid Color: Clear Amniotic Fluid Amount: Small Amniotic Fluid Odor: None
[2017-02-03 21:10] VITALS: BP 128/79; PULSE 53; RESP 17
[2017-02-03] MEDS ORDERED: ZOLPIDEM 5 MG TAB PO PRN (22:00)
[2017-02-03] MEDS ORDERED: LANOLIN 7 GM TUBE TOP PRN (22:00)
[2017-02-03] MEDS ORDERED: OXYCODONE/ACETAMINOPHEN (5/325) TAB PO PRN (22:00)
[2017-02-03] MEDS: OXYTOCIN 30 UNITS/LR 500 ML IV SCH (23:27)
[2017-02-04] VITALS: BP 126/79; PULSE 63; RESP 18
[2017-02-04 04:00] VITALS: BP 113/73; PULSE 73; RESP 18
[2017-02-04 10:09] LABS: ABNORMAL IP MESSAGE 1; HEMATOCRIT 30.4 % (37.0-47.0); HEMOGLOBIN 10.1 g/dl (12.0-16.0); MEAN CORPUSCULAR HEMOGLOBIN 28.5 pg (29.0-33.0); MEAN CORPUSCULAR HGB CONC 33.2 g/dl (32.0-37.0); MEAN CORPUSCULAR VOLUME 85.9 fl (82.0-101.0); MEAN PLATELET VOLUME 12.6 fl (7.4-10.4); PLATELET COUNT 85 10^3/UL (140-415); RED BLOOD COUNT 3.54 10^6/ul (4.20-5.40); RED CELL DISTRIBUTION WIDTH 13.9 % (11.5-14.5); WHITE BLOOD COUNT 9.6 10^3/ul (4.8-10.8)
[2017-02-04 10:12] LABS: POSITIVE DIFF @See below
[2017-02-04 11:03] LABS: ANISOCYTOSIS 1+ (0-0); MONOCYTES % (M) 9 % (0-11); PLATELET ESTIMATE DECREASED
--- NOTE | 2017-02-04 11:46 | PN ---
Date/Time of Note Date/Time of Note DATE: 02/04/17 TIME: 11:43 Assessment/Plan VTE Prophylaxis VTE Prophylaxis Intervention: ambulation Lines/Catheters IV Catheter Type (from Nrsg): Peripheral IV Subjective 24 Hr Interval Summary Free Text/Dictation Anesthesia note: A 31 f s/p spinal duramorh s/p# 1 is doing well. no itching, n/v, headache, back pain, or inflammation. care per surgery team Exam/Review of Systems Vital Signs Vitals Vital Signs Date Time Temp Pulse Resp B/P Pulse Ox O2 Delivery O2 Flow Rate FiO2 02/04/17 04:00 98.3 73 18 113/73 Room Air 02/04/17 03:41 97 21 Intake and Output 02/03/17 02/03/17 02/04/17 15:00 23:00 07:00 Intake Total 2000 ml 375 ml Output Total 550 ml 1348 ml 1900 ml Balance 1450 ml -973 ml -1900 ml Results Result Diagram: 02/04/17 0933 02/03/17 1230 Results 24 hrs Laboratory Tests Test 02/03/17 12:30 02/03/17 15:55 02/03/17 15:56 02/04/17 09:33 White Blood Count 7.8 9.6 # Red Blood Count 4.41 3.54 L Hemoglobin 12.9 10.1 #L Hematocrit 37.6 30.4 L Mean Corpuscular Volume 85.3 85.9 Mean Corpuscular Hemoglobin 29.3 28.5 L Mean Corpuscular Hemoglobin Concent 34.3 33.2 Red Cell Distribution Width 13.7 13.9 Platelet Count 103 L 85 L Mean Platelet Volume 13.6 H 12.6 H Neutrophils % 62.1 Lymphocytes % 28.6 Monocytes % 7.9 Eosinophils % 0.4 Basophils % 0.4 Nucleated Red Blood Cells % 0.0 0.0 Neutrophils # 4.9 Lymphocytes # 2.2 Monocytes # 0.6 Eosinophils # 0.0 Basophils # 0.0 Nucleated Red Blood Cells # 0.0 Prothrombin Time 11.7 L Prothrombin Time Ratio 0.9 INR International Normalized Ratio 0.86 Activated Partial Thromboplast Time 29.7 Glucose Level 74 Rapid Plasma Reagin NONREACTIVE Hepatitis B Surface Antigen NEGATIVE Blood Gas Specimen Source CBV CBA Arterial Blood Date Drawn 02/03/2017 4:00:13 PM 02/03/2017 4:03:52 PM Arterial Blood Gas Puncture Site CORD CORD Cosme Test N/A N/A Cord Venous Blood pH 7.168 Cord Venous Blood PCO2 65.4 *H Cord Venous Blood PO2 11.4 L Cord Venous Blood HCO3 23.2 Cord Venous Blood Base Excess -6.6 Blood Gas Temperature 37.0 37.0 Blood Gas Modality ROOM AIR ROOM AIR FiO2 21.0 21.0 Blood Gas Critical Value Read Back Bret GOODWIN RN Blood Gas Notified Whom DUNG RAZO Blood Gas Notified Time 02/03/2017 4:10:25 PM 02/03/2017 4:12:00 PM Cord Blood Carboxyhemoglobin 0.3 Cord Arterial Blood pH 7.123 L Cord Arterial Blood PCO2 79.5 *H Cord Arterial Blood HCO3 25.4 Cord Arterial Blood Base Excess -6.6 Cord Arterial Blood Hemoglobin 18.6 Cord Arterial Blood Oxyhemoglobin 5.6 Cord Arterial Blood Methemoglobin 1.6 Segmented Neutrophils % (Manual) 77 Band Neutrophils % (Manual) 5 H Lymphocytes % (Manual) 9 L Monocytes % (Manual) 9 Neutrophils # (Manual) 7.4 Band Neutrophils # 0.4 Absolute Lymphocytes (Manual) 0.8 Absolute Monocytes (Manual) 0.8 Platelet Estimate DECREASED Anisocytosis 1+ Medications Medications Current Medications Ketorolac Tromethamine (Toradol) 30 mg Q6H PRN IV PAIN; Start 02/03/17 at 17:00 ; Stop 02/04/17 at 16:59 Hydromorphone HCl (Dilaudid) 1 mg Q3H PRN IV BREAKTHROUGH PAIN; Start 02/03/17 at 17:00; Stop 02/04/17 at 16:59 Hydromorphone HCl (Dilaudid) 0.2 mg Q3H PRN IV PAIN LEVEL 1-5; Start 02/03/17 at 17:00; Stop 02/04/17 at 16:59 Hydromorphone HCl (Dilaudid) 0.4 mg Q3H PRN IV PAIN LEVEL 6-10; Start 02/03/17 at 17:00; Stop 02/04/17 at 16:59 Oxycodone/ Acetaminophen (Percocet (5/ 325)) 1 tab Q4H PRN PO PAIN LEVEL 4-6; Start 02/03/17 at 22:00 Oxycodone/ Acetaminophen (Percocet (5/ 325)) 2 tab Q4H PRN PO PAIN LEVEL 7-10; Start 02/03/17 at 22:00 Ibuprofen (Motrin) 600 mg Q6 PO ; Start 02/04/17 at 18:00 Simethicone (Mylicon) 160 mg Q8H PRN PO DISTENSION/GAS/BLOATING; Start at 22:00 Senna/Docusate Sodium (Senokot-S) 1 tab BID PO ; Start 02/04/17 at 21:00 Diphtheria/ Tetanus/Acell Pertussis 0.5 ml 0.5 ml ONCE ONCE IM* ; Start at 09:00; Stop 02/06/17 at 09:01 Oxytocin/Lactated Ringer's 500 ml @ 0 mls/hr ONCE PRN IV For Hemorrhage Management; Start 02/03/17 at 22:00 Methylergonovine Maleate (Methergine) 0.2 mg ONCE PRN IM VAGINAL BLEEDING; Start 02/03/17 at 22:00 Carboprost Tromethamine (Hemabate) 250 mcg ONCE PRN IM VAGINAL BLEEDING; Start 02/03/17 at 22:00 Misoprostol (Cytotec) 1,000 mcg ONCE PRN NV VAGINAL BLEEDING; Start 02/03/17 at 22:00 Diphenhydramine HCl (Benadryl) 25 mg Q6H PRN IV PRURITUS; Start 02/03/17 at 22: 00 Ondansetron HCl (Zofran Inj) 4 mg Q6H PRN IV NAUSEA AND/OR VOMITING; Start at 22:00 Zolpidem Tartrate (Ambien) 10 mg QHS PRN PO INSOMNIA; Start 02/03/17 at 22:00 WEI LOPEZ MD Feb 04, 2017 11:46
--- NOTE | 2017-02-04 17:07 | OPR ---
Operative Report Planned Procedure Free Text/Dictation MFM informed me regarding NST which showed minimum bbv even late recommanded delivery Procedure date [id number] Procedure(s) primary low transverse section Performed by see signature line Assisting provider: DARLENE CARIAS MD Anesthesiologist: WEI LOPEZ MD Pre-procedure diagnosis IUP 40w CATIII Anesthesia Type: spinal Procedure Description Under satisfactory [spinal ] anesthesia, the patient was prepped and draped and placed in a supine position, tilted to the left. Pfannenstiel incision was made, carried through the subcutaneous tissue. Bleeders brought under control with electrocautery. Fascia incised to the length of the incision. Rectus muscles from the fascia, divided midline. Peritoneum exposed, entered . Exploration of abdomen revealed gravid uterus.bladder was exremely full like no choudhury in, but with doubt Transverse incision was made in the lower segment of the uterus. Amniotic sac ruptured. clear [] amniotic fluid noted.normal male infant was born form LOT assist with kiwi vac, [] Nasal oropharyngeal suction was performed. The baby was handed to the team for immediate attention. The placenta was delivered manually intact.after cord blood obtained.and uterus was exteriolized Uterine cavity was cleaned with dry sponge. again noticed bladder dosent seems to be draining, bilateral hematoma noticed which was separately controlled with 0ch gut with thin needle after Uterus closed in 2 layers using#1 ch gut and 0 ch gut[] in continuous fashion. .checked the urine out put and quality of urine which was all blood rather than bloody urine which led me think finally in the vagina which was confirmed per vaginal exam . Peritoneal cavity irrigated with warm saline . uterine incision was rechecked which is dry and bladder peritoneum was approximated . Sponge, needle and instrument count reported to be correct. Abdominal peritoneum closed with []00 ch continuously. Rectus muscle approximated with [00 ch . Fascia closed with []#1 vicryl in 2 segment , subcut was irrigated with water and approximated with 00plain gut , and skin closed with insorb . Estimated blood loss 800 ml and since choudhury was in the vagina which was removed and new choudhury was inserted obtained 150cc clear urine imediately. patient was sent to [facility] in stable condition. Post-Procedure Post-procedure diagnosis same as above delivered normal male with 4,7,9 Findings: Live Baby [], Apgars [4 7 9 ] and [], weight [], position LOT ], [] presentation []VXcord. Estimated blood loss: other (800) Specimen(s): no Grafts/Implants: no Grafts/Implants description none Complication(s): no Pt Condition post procedure: stable Disposition: PACU Physician Certification I, the undersigned physician, hereby certify that I have discussed the procedure described in this consent form with this patient (or the patient's legal financial sales representative), including: * The risk and benefits of the procedure; * Any adverse reactions that may reasonably be expected to occur; * Any alternative efficacious methods of treatment which may be medically viable ; * The potential problems that may occur during recuperation; * Potential for blood transfusion and associated risks/benefits; and * Any research or economic interest I may have regarding this treatment. I further certify that the patient/legally responsible person was encouraged to ask question and that all questions were answered. BROOKE FRIEDMAN MD Feb 04, 2017 17:07
[2017-02-04 17:20] VITALS: BP 110/60; PULSE 70; RESP 16
[2017-02-04] MEDS: IBUPROFEN 600 MG TAB PO SCH (17:45)
[2017-02-04] MEDS: OXYTOCIN 30 UNITS/LR 500 ML IV SCH (19:30)
[2017-02-04 20:00] VITALS: BP 118/73; PULSE 63; RESP 19
--- NOTE | 2017-02-04 20:13 | PN ---
Date/Time of Note Date/Time of Note DATE: 02/04/17 TIME: 20:12 Assessment/Plan VTE Prophylaxis VTE Prophylaxis Intervention: ambulation Lines/Catheters IV Catheter Type (from Nrsg): Peripheral IV Assessment/Plan Assessment/Plan Status post postop day 1 Advance diet and ambulate Continue to monitor vital signs Monitor blood sugar Subjective 24 Hr Interval Summary No bowel movement Passing flatus Constitutional: BM, ambulates, flatus, improved, no complaints, urine output Pain Control: well controlled Exam/Review of Systems Vital Signs Vitals Vital Signs Date Time Temp Pulse Resp B/P Pulse Ox O2 Delivery O2 Flow Rate FiO2 02/04/17 17:20 97.9 70 16 110/60 Room Air 02/04/17 03:41 97 21 Intake and Output 02/03/17 02/03/17 02/04/17 15:00 23:00 07:00 Intake Total 2000 ml 375 ml Output Total 550 ml 1348 ml 1900 ml Balance 1450 ml -973 ml -1900 ml Exam Free Text/Dictation Abdomen is soft bowel sounds present, abdomen is not distended slightly tender around the incision Incision is covered Constitutional: alert, oriented, well developed Psych: nl mood/affect, no complaints Head: atraumatic, normocephalic Eyes: EOMI, nl conjunctiva, nl lids, nl sclera ENMT: mucosa pink and moist, nl external ears & nose, nl lips & teeth, nl nasal mucosa & septum Neck: non-tender, supple Respiratory: clear to auscultation, normal air movement Cardiovascular: nl pulses, regular rate and rhythm Gastrointestinal: nl liver, spleen, non-tender, soft Musculoskeletal: nl extremities to inspection, nl gait and stance Extremities: normal pulses Neurological: 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
[2017-02-04] MEDS ORDERED: BISACODYL 10 MG SUPP PR ONE (20:30)
[2017-02-04] MEDS ORDERED: GLUCOSE GEL 15 GRAM TUBE PO PRN ×2 (21:00)
[2017-02-04] MEDS ORDERED: GLUCOSE GEL 15 GRAM TUBE BUCCAL PRN (21:00)
[2017-02-04] MEDS ORDERED: DEXTROSE 50% 50 ML SYRINGE IV PRN ×2 (21:00)
[2017-02-04] MEDS: SENNA TAB PO SCH (21:00)
[2017-02-04] MEDS ORDERED: GLUCAGON 1 MG INJ IM PRN (21:00)
[2017-02-04] MEDS: MAGNESIUM HYDROXIDE 30ML CUP PO SCH (21:34)
[2017-02-04] MEDS: SENNA/DOCUSATE NA (8.6MG/50MG) TAB PO SCH (21:35)
[2017-02-04] MEDS: metFORMIN (XR) 500 MG TAB PO SCH (21:41)
[2017-02-05 04:51] VITALS: BP 108/67; PULSE 80; RESP 18
[2017-02-05] MEDS: IBUPROFEN 600 MG TAB PO SCH ×4 (05:31→17:23)
[2017-02-05] MEDS: ACCU-CHEK XX SCH ×4 (08:02→21:01)
[2017-02-05 08:10] VITALS: BP 102/64; PULSE 80; RESP 16
[2017-02-05] MEDS: SENNA/DOCUSATE NA (8.6MG/50MG) TAB PO SCH ×2 (09:00→21:00)
[2017-02-05] MEDS: SENNA TAB PO SCH ×2 (09:00→21:00)
[2017-02-05] MEDS: MAGNESIUM HYDROXIDE 30ML CUP PO SCH ×2 (09:00→21:00)
[2017-02-05] MEDS: metFORMIN (XR) 500 MG TAB PO SCH ×2 (10:03→21:01)
[2017-02-05 16:00] VITALS: BP 105/62; PULSE 79; RESP 16
--- NOTE | 2017-02-05 19:42 | PN ---
Date/Time of Note Date/Time of Note DATE: 02/05/17 TIME: 19:41 Assessment/Plan VTE Prophylaxis VTE Prophylaxis Intervention: ambulation Lines/Catheters IV Catheter Type (from Nrsg): Peripheral IV Assessment/Plan Assessment/Plan Status post Postop day 2 We will possibly DC home next day Subjective 24 Hr Interval Summary Passing flatus Constitutional: BM, ambulates, flatus, improved, no complaints, urine output Pain Control: well controlled Exam/Review of Systems Vital Signs Vitals Vital Signs Date Time Temp Pulse Resp B/P Pulse Ox O2 Delivery O2 Flow Rate FiO2 02/05/17 16:00 97.9 79 16 105/62 Room Air 02/04/17 03:41 97 21 Intake and Output 02/04/17 02/04/17 02/05/17 15:00 23:00 07:00 Output Total 2700 ml 1100 ml Balance -2700 ml -1100 ml Exam Free Text/Dictation Incision still is covered Abdomen is soft and nontender Constitutional: alert, oriented, well developed Psych: nl mood/affect, no complaints Head: atraumatic, normocephalic Eyes: EOMI, nl conjunctiva, nl lids, nl sclera ENMT: mucosa pink and moist, nl external ears & nose, nl lips & teeth, nl nasal mucosa & septum Neck: non-tender, supple Respiratory: clear to auscultation, normal air movement Cardiovascular: nl pulses, regular rate and rhythm Gastrointestinal: nl liver, spleen, non-tender, soft Musculoskeletal: nl extremities to inspection, nl gait and stance Extremities: normal pulses Neurological: ANALYSIS LEAD II-XII intact, nl mental status, nl speech, nl strength Skin: nl turgor, rash or lesions Lymph: nl lymph nodes Results Result Diagram: 02/04/17 0933 02/03/17 1230 HINA WOMACK MD Feb 05, 2017 19:42
[2017-02-05 20:00] VITALS: BP 106/68; PULSE 71; RESP 19
[2017-02-06] MEDS: IBUPROFEN 600 MG TAB PO SCH ×5 (00:55→22:14)
[2017-02-06] MEDS: OXYCODONE/ACETAMINOPHEN (5/325) TAB PO PRN ×3 (03:46→16:10)
[2017-02-06 04:27] VITALS: BP 112/66; PULSE 63; RESP 19
[2017-02-06] MEDS: ACCU-CHEK XX SCH ×3 (08:06→16:00)
[2017-02-06 08:10] VITALS: BP 106/76; PULSE 63; RESP 16
[2017-02-06] MEDS: metFORMIN (XR) 500 MG TAB PO SCH ×2 (08:52→21:53)
[2017-02-06] MEDS: SENNA TAB PO SCH (09:00)
[2017-02-06] MEDS: MAGNESIUM HYDROXIDE 30ML CUP PO SCH ×2 (09:00→21:54)
[2017-02-06] MEDS: SENNA/DOCUSATE NA (8.6MG/50MG) TAB PO SCH ×2 (09:00→21:53)
[2017-02-06] MEDS ORDERED: DIPHTH/TET/ACEL PERTUSS (ADULT) 0.5 ML VIAL IM* ONE (09:00)
--- NOTE | 2017-02-06 12:01 | NSTRPT ---
NST Information Datetime Report Generated by CPN: 02/06/2017 12:01 Datetime: 02/03/2017 10:58 NST Information EGA: 40.0 Test Number: 8 Time on Monitor: 02/03/2017 11:27 Time off Monitor: 02/03/2017 11:54 NST Duration (Min): 27 Reason for NST: Diabetes Mellitus; Other Test and Monitor Explained: Monitor Explained; Test Explained; Verbalized Understanding Pulse: 61 Resp: 18 SBP: 102 DBP: 72 Test Evaluation NST Interventions: PO Hydration; Reposition Patient; Acoustic Stimulation Patient States Movement: Present Contraction Frequency: IRREGULAR FHR Baseline : 120 Variability: Moderate 6-25bpm Accelerations: 10X10 Decelerations: Early; Late FHR Category: Category II NST Results: Non-Reactive Comments: To u/s. TOAN 23cm. CEPHALIC. FBS 71 1155-NST reviewed by Dr Paz, possible late decel. Dr Paz spoke with Dr Chowdhury (covering for Dr Iam cazares). 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 Orders received to admit to L_D for delivery. Pt last ate at 1000. POC explained to pt, states understanding. Report c alled to Cathleen, charge L_D. 1203-Pt to L_D via w/c by Rebekah Figueroa, pt denies further questions at th is time. Electronically Signed By E-Signature: with User ID: [id number] Datetime: 01/30/2017 10:56 NST Information EGA: 39.3 NST Duration (Min): 33 Datetime: 01/27/2017 08:58 NST Information EGA: 39.0 NST Duration (Min): 34 Datetime: 01/23/2017 13:20 NST Information EGA: 38.3 NST Duration (Min): 35 Datetime: 01/20/2017 10:52 NST Information EGA: 38.0 NST Duration (Min): 47 Datetime: 01/16/2017 10:53 NST Information EGA: 37.3 NST Duration (Min): 52 Datetime: 01/14/2017 13:14 NST Information EGA: 37.1 Datetime: 01/14/2017 10:50 NST Information EGA: 38.0 NST Duration (Min): 28 Datetime: 01/09/2017 11:04 NST Information EGA: 37.2 NST Duration (Min): 59
[2017-02-06 16:00] VITALS: BP 96/64; PULSE 69; RESP 16
--- NOTE | 2017-02-06 17:04 | DS ---
Date/Time of Note Date/Time of Note DATE: 02/06/17 TIME: 17:03 Obstetrical Discharge Record Final Diagnosis Final Diagnosis: Term delivered Other Final Diagnosis Status post Section Section: Primary Primary Indication Category 3 heart tracing Complications Gestational Diabetes Augmentation: No Induction: No Condition on Discharge Physical Assessment Last Vitals: See nurse's notes Voiding: Yes Bowel Movement: Yes Breast: Soft, non-tender, Filling Fundus: Firm Abdomen and Incision: Abdomen is soft nontender Incision is healing well Episiotomy: Not applicable Calf Tenderness: No Patient Condition: Good HINA WOMACK MD Feb 06, 2017 17:04
--- NOTE | 2017-02-06 17:05 | DS ---
Date/Time of Note Date/Time of Note DATE: 02/06/17 TIME: 17:04 Discharge Summary Admission/Discharge Info Admit Date/Time Feb 03, 2017 at 12:13 Discharge Date/Time May 08, 2017 Discharge Diagnosis Let us post primary delivery Patient Condition: Good Procedures Primary section Hx of Present Illness 31-year-old female underwent primary section because of category 3 heart tracing Patient had uneventful postop course Hospital Course Uncomplicated Home Meds Reported Medications Ferrous Sulfate* (Ferrous Sulfate*) 325 Mg Tabec, 325 MG PO DAILY, TAB 01/20/17 Calcium Carbonate (CALCIUM) 600 Mg Tablet, 600 MG PO, TAB 01/20/17 Multivit/Min/Fol Ac/Iron/Pren* ( S*) 1 Tab Tab, 1 TAB PO DAILY, TAB 12/16/16 Follow-up Plan 2 3 clinic clinic Primary Care Provider Yevgeniy Vanegas MD Time spent on discharge: > 30 minutes Pending Labs Laboratory Tests Test 02/05/17 20:53 02/06/17 08:06 02/06/17 10:37 02/06/17 13:14 Bedside Glucose 103mg/dL (70-220) 79mg/dL (70-220) 84mg/dL (70-220) 87mg/dL (70-220) Test 02/06/17 16:07 Bedside Glucose 100mg/dL (70-220) HINA WOMACK MD Feb 06, 2017 17:05
--- NOTE | 2017-02-06 17:07 | PD.PPDC ---
[employer] Discharge Instruction Provider Information Physician Information 31-year-old female had primary delivery Diagnosis Final Diagnosis: Status post delivery Condition Patient Condition: Good Diet Diet: Special Diet Special Diet: 1000-calorie ADA diet Activity/Restrictions Activity: September Shower Restrictions: No Exercising No Lifting Nothing in the Vagina Return to Work or School: Apr 06, 2017 Follow-up Follow-up with Physician: 2, 3, Week/Weeks (Clinic) Return to clinic for LAYOUT MAN Instructions: Fever greater than 101 Chills OB Instructions: Breast Tenderness Depression Surgical Instructions: Incisional Drainage Incisional Redness HINA WOMACK MD Feb 06, 2017 17:07
[2017-02-06] MEDS ORDERED: IBUP-1542 PO (17:09)
[2017-02-06] MEDS ORDERED: METF500T3 PO (17:09)
[2017-02-06 21:45] VITALS: BP 110/60; PULSE 72; RESP 20
== END 2017-02-06 22:55 | disposition home or self-care (01) | DRG 766 ==
LOC: EDSTATUS 12:11 → L-D 12:13 → PP1 21:13
PROVIDERS: ADMIT Obstetrics & Gynecology; ATTEND Obstetrics & Gynecology
PROC: 3E033VJ Introduction of Other Hormone into Peripheral Vein, Percutaneous Approach (ICD-10-PCS; 2017-02-03)
PROC: 10D00Z1 Extraction of Products of Conception, Low, Open Approach (ICD-10-PCS; principal; 2017-02-03 17:00)
DX: O24.429 Gestational diabetes mellitus in childbirth, unspecified control (principal); O48.0 Post-term pregnancy; Z3A.40 40 weeks gestation of pregnancy; Z37.0 Single live birth
CPT/HCPCS: 36415; 36600; 76815; 82803; 82947; 82962; 85025; 85610; 85730; 86592; 86850; 86900; 86901; 87340; 88307; 90715; 94760; 99464; J0690; J1200; J1885; J2274; J2590; J2765; J3010; J7120